=== PATIENT | male | born 2000 | race Caucasian/White ===

== ENCOUNTER 2024-06-22 02:44 | Emergency (ER) | payer OTHER, SELFPAY ==
[2024-06-22 02:50] VITALS: BP 156/91; PULSE 107; RESP 18; TEMP 36.6; O2SAT 98; BMI 31.2
--- NOTE | 2024-06-22 02:57 | ED.NURSE ---
Visual Acuity - Right eye 20/30, Left eye 20/50
--- NOTE | 2024-06-22 03:13 | ED.EYEPROB ---
HPI - Eye Problem General Date Seen: 06/22/24 Chief complaint: Eye Problems Stated complaint: dog scratched L eye Time Seen by Provider: 06/22/24 02:45 Source: patient Mode of arrival: ambulatory Limitations: no limitations History of Present Illness HPI Narrative: Patient is a 23-year-old gentleman who presents here with scratch to his left eye, this occurred when his own dog, was playing with him and scratched his left eye, he went to bed but then woke up with left eye tearing, and some blurry vision, and proceeded to come in here he did take 200 mg of ibuprofen before coming in here. Last tetanus was updated in 2013, he does not wear contacts or glasses. Left eye is 20 /50 right eye is 20/20 Injury occurred at 9:30 a.m. last night MD chief complaint: eye pain and eye injury Onset (ago): hour(s) Location: left eye Eye Symptoms: burning, foreign body sensation and blurry vision Place: home Mechanism: direct trauma Severity: moderate Treatments Prior to Arrival: NSAID Related Data Patient tetanus UTD: No Allergies Allergy/AdvReac Type Severity Reaction Status Date / Time No Known Drug Allergies Allergy Verified 06/22/24 02:54 Review of Systems Status of ROS: Reports: 10 or more systems reviewed and unremarkable except as noted in History and below Exam Narrative: Exam Narrative: On examination hears tearing out of his left eye, his lid is grossly normal, pupils equal round reactive to light he is photophobic, extraocular muscles are normal with no nystagmus. Tetracaine is used in his left eye, the good affect this helped a lot of his blepharospasm. Was able to put some fluorescein in there and rate in the center part of his eye there was an obvious scratch corneal abrasion, with uptake of the fluoroscein . Upper lid is everted and normal no evidence of foreign body lower lid is checked also. Slit lamp was used. Erythromycin ophthalmic ointment is used in his left eye, with 1 ribbon, he is given ibuprofen also. Const: Vital Signs, click to edit/add: Vital Signs - 24 hr 06/22/24 02:50 Temperature 97.8 F Pulse Rate [Right Pulse Oximeter] 107 H Respiratory Rate 18 Blood Pressure [Ri ght Upper Arm] 156/91 H Pulse Oximetry 98 Oxygen Delivery Me thod Room Air Documenting provider has reviewed patient's vital signs: yes Course Vital Signs Vital signs: Initial Vital Signs Temperature 97.8 F 06/22/24 02:50 Temperature Source Temporal Artery Scan 06/22/24 02:50 Pulse Rate 107 H 06/22/24 02:50 Pulse Rhythm Regular 06/22/24 02:50 Pulse Strength 3+ Normal 06/22/24 02:50 Respiratory Rate 18 06/22/24 02:50 Blood Pressure 156/91 H 06/22/24 02:50 Blood Pressure Mean 112 H 06/22/24 02:50 Blood Pressure Position Sitting 06/22/24 02:50 Pulse Oximetry 98 06/22/24 02:50 Oxygen Delivery Method Room Air 06/22/24 02:50 Vital Signs Temperature 97.8 F 06/22/24 02:50 Pulse Rate 107 H 06/22/24 02:50 Respiratory Rate 18 06/22/24 02:50 Blood Pressure 156/91 H 06/22/24 02:50 Pulse Oximetry 98 06/22/24 02:50 Oxygen Delivery Method Room Air 06/22/24 02:50 Temperature 97.8 F 06/22/24 02:50 Pulse Rate 107 H 06/22/24 02:50 Respiratory Rate 18 06/22/24 02:50 Blood Pressure 156/91 H 06/22/24 02:50 Pulse Oximetry 98 06/22/24 02:50 Oxygen Delivery Method Room Air 06/22/24 02:50 MDM - Eye Problem MDM Narrative Medical decision making narrative: Consideration was made for both foreign body, corneal abrasion, glaucoma, hyphema, open globe, among other things. Differential Diagnosis Differential diagnosis: Likely corneal abrasion, conjunctivitis, acute iritis, hyphema, periorbital cellulitis, subconjunctival hemorrhage, glaucoma, corneal ulcer and ruptured globe Medical Records Attestation: I reviewed the patient's medical records. Discharge Plan Discharge Clinical Impression: Corneal abrasion Patient Disposition: Home, Self-Care Condition: Improved Instructions: Corneal Abrasion (DC), Photophobia (ED) Additional Instructions: Home rest ibuprofen 6-800 mg 3 times a day, erythromycin ointment applied 3 times a day to the area for the next 5 days, you should be significantly better tomorrow, if your not then I recommend he be seen at the [facility] here in town. As they have some better tools then I have here. The scratches usually heal up very fast, in the next 24-48 hours infection is the big thing and that is why were using the erythromycin ointment. Be careful when you drive home, as you will have 1 eye blurry vision, and also your perception will be off. Activity Level: Light activity Discharge Diet: Regular Stand Alone Forms: [employer] Info Instructions
[2024-06-22] MEDS: TETANUS/DIPHTH/PERTUSSIS 0.5 ML SYRINGE IM (03:16)
[2024-06-22] MEDS: IBUPROFEN 200 MG TABLET 600 MG PO (03:19)
== END 2024-06-22 03:32 | disposition home or self-care (01) ==
LOC: ED 03:31
PROVIDERS: Emergency Provider Family Medicine
DX: S05.02XA Injury of conjunctiva and corneal abrasion without foreign body, left eye, initial encounter (principal); W54.1XXA Struck by dog, initial encounter; Z23 Encounter for immunization
CPT/HCPCS: 90471; 90715; 99283; A9270

== ENCOUNTER 2025-05-15 23:51 | Emergency (ER) | payer OTHER, SELFPAY ==
--- OUTSIDE RECORDS SUMMARY | 2025-05-15 23:53 | XMS_ITS | Clinical Summary ---
Author Organization [facility] Address [address] [place] [id number] Care Team Providers Care Fish Net Maker Name Role Phone Breanne Eduardo Primary Care Provider Allergies No known active allergies Medications HYDROcodone-ac etaminophen (NORCO) 5-325 mg per tabletIndicati ons:Pain, dental Take 1 Tablet by mouth every 4 hours if needed for Pain. Max acetaminophen dose: 4000 mg in 24 hrs. 7 Tablet 2 Active amoxicillin-cl avulanate 875-125 mg tablet (AUGMENTIN)Ind ications:Pain, dental Take 1 Tablet by mouth in the morning and 1 Tablet in the evening. Take with meals. 14 Tablet 2 Active Active Problems Problem Noted Date Diagnosed Date Back pain 10/10/2011 Overview (10/10/2011): Referred to [facility] Saw Dr Campbell 10/08/11, scoliosis likely due to posturing. normal hips/pelvis. Plan for MRI to rule out any further pathology. Acute upper respiratory infections of unspecifie d site 04/13/2004 Unspecified otitis media 04/13/2004 Resolved Problems Problem Noted Date Diagnosed Date Resolved Date RASH 10/05/2003 10/19/2003 Immunizations Immunization Administration Dates Next Due DTaP 03/03/2006, 3,02/20/2001,12/19,2000 HIB-HepB (Comvax) 08/28/2001,2000,10/17/19 HPV 9 (Gardasil 9) 09/16/2017 Hepatitis A (Peds) 09/16/2017,05/17/2015 Inactivated Polio Vaccine 03/03/2006,01/2002,2000,10/16 Influenza, IIV4 05/17/2015 MENINGOCOCCAL VACCINE 2 VIAL [id number] (MENVEO) 09/16/2017,02/15/2013 MMR 03/03/2006,09/24/2002 Pneumococcal conj 7-Valent (Prevnar 7) 0 09/24/2002,02/20/2001,2000,10/16 Tdap 02/15/2013 Varicella Vaccine 02/25/2013,08/28/2001 Family History Medical History Relation Name Comments Good Health Father Heart Disease Maternal Grandfather Good Health Mother Relation Name Status Comments Father Maternal Grandfather Mother Social History Tobacco Use Types Packs/Day Years Used Date Smoking Tobacco: Former Cigarettes 0.3 0.1 Smokeless Tobacco: Never Tobacco Cessation:Counseling Given: Yes Comments:Father smokes outside Alcohol Use Standard Drinks/Week Comments No 0 (1 standard drink = 0.6 oz pure alcohol) Alcoholic Drinks/day: 0 Former drinker PHQ-2 Answer Date Recorded PHQ-2 Score 4 08/23/2018 Social Connections Answer Date Recorded Frequency of Communication with Friends and Fami ly Not on file 09/11/2021 Sex and Gender Information Value Date Recorded Sex Assigned at Not on file 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 Gender Identity Not on file Sexual Orientation Not on file Obstetrics History Last Filed Vital Signs Vital Sign Reading Time Taken Comments Blood Pressure 161/94 01/21/2022 11:14 AM CDT Pulse 56 01/21/2022 11:14 AM CDT Temperature 36.7 C (98.1 F) 01/21/2022 11:14 AM CDT Respiratory Rate 16 01/21/2022 11:14 AM CDT Oxygen Saturation 100% 01/21/2022 11:14 AM CDT Inhaled Oxygen Concentration - - Weight 109.3 kg (241 lb) 09/11/2021 2:59 PM CDT Height 183.5 cm (6' 0.24) 07/09/2018 2:27 PM CS T Body Mass Index - - Plan of Treatment Upcoming Encounters Date Type Department Care Team (Late st Contact Info) Description 05/20/2025 9:40 AM PERFORATOR OPERATOR Office Visit [facility] [place] [address] [place], [place] [phone] [place] [id number] [place], [place] [phone] Health Maintenance Due Date Last Done Comments HIV for age 15-65 2015 HPV series for age 9-45 (2 - Male 3-dose series) 10/14/2017 09/16/2017 BMI (ht and wt on same day) for age 18+ 2018 Hepatitis C screening for age 18-79 2018 Depression screening for age 12+ 11/13/2018 11/13/2017, 09/16/2017, 02/26/2017 Tetanus booster 02/15/2023 02/15/2013 Influenza Vaccine (#1) 2025 05/17/2015 RSV vaccine for adults or (1 - 1-dose 75+ series) 2075 Hepatitis B series for 19+ Completed 08/28, 2000, 2000 Pneumococcal series for age 6-49 Aged Out 09/24/2002, 02/20/2001, 2000, Additional history exists No longer eligible based on patient's age to complete this topic Care Teams Fish Net Maker Relationship Specialty Start Date End Date Breanne Eduardo [place] [address] [place] [address] PCP - General Physician Bill Of Lading Clerk 09/09/17
[2025-05-15 23:57] VITALS: BP 153/89; PULSE 84; RESP 19; TEMP 36.5; O2SAT 99; BMI 29.5
--- NOTE | 2025-05-16 00:33 | CRLHL7_ITS ---
For Patients: As a result of the Century Cures Act, medical imaging exams and procedure reports are released immediately into your electronic medical record. You may view this report before your referring provider. If you have questions, please contact your health care provider. INDICATION: Right upper quadrant pain. TECHNIQUE: CT abdomen and pelvis acquired with 112 cc Isovue 370 IV contrast. COMPARISON: None. FINDINGS: Lower chest: Unremarkable. Liver: Unremarkable. Normal in size and attenuation. No suspicious masses. Gallbladder and bile ducts: Cholelithiasis. No inflammation. No biliary dilatation. Pancreas: Unremarkable. No mass or inflammation. Spleen: Unremarkable. Normal in size. No masses. Adrenal glands: Unremarkable. No nodules. Kidneys: Unremarkable. No suspicious masses, stones, or hydronephrosis. GI tract: Unremarkable. Normal in caliber. No sign of mass or inflammation. Normal appendix. Vasculature: Abdominal aorta is normal in caliber. Mesenteric arteries are patent. Lymph nodes: No lymphadenopathy. Peritoneum/Abdominal Wall: Unremarkable. No sign of mass or infiltration. No free air or significant free fluid. Pelvis: Unremarkable. Bones: Unremarkable for age. IMPRESSION: No acute intra-abdominal/pelvic abnormality, including CT evidence of acute cholecystitis or biliary obstruction. Please note that all CT scans at this facility use dose modulation, iterative reconstruction, and/or weight-based dosing when appropriate to reduce radiation dose to as low as reasonably achievable. Dictated by Samy Jones MD @ 05/16/2025 1:00:45 AM (Electronically Signed)
--- NOTE | 2025-05-16 00:39 | ED_ITS ---
HPI - General Adult General Chief complaint: Abdominal Pain Stated complaint: right side abdominal pain Time Seen by Provider: 05/16/25 00:20 Source: patient Mode of arrival: ambulatory History of Present Illness HPI narrative: 24-year-old male presents to the emergency department with 90 minutes of pain in the right upper quadrant in the abdomen radiating around to the back. Constant, dull and achy. Accompanied by vomiting. No fever. No trauma or injury. No prior history of similar symptoms. No family history of gallbladder disease. No prior pancreatitis. No fever. Did not try any interventions prior to coming to ED. no prior abdominal surgeries. Not anticoagulated. Drinks 1 beer about twice weekly, no heavy alcohol use. Past medical history benign per his report. No major long-term health problems. No allergies. ROS is notable for the GI symptoms only, otherwise denies times 12 systems. No family history of bleeding or blood clotting disorders. No family history of anesthesia complications. Related Data Home Medications ?Medication ?Instructions ?Recorded ?Confirmed No Known Home Medications 05/15/2504/24 Allergies Allergy/AdvReac Type Severity Reaction Status Date / Time No Known Drug Allergies Allergy Verified 05/15/25 23:57 [facility] Social History Smoking Status: Never smoker Do you use any of these nicotine containing products: Vaping Products How often do you have a drink containing alcohol: monthly or less AUDIT-C Alcohol total score: 1 Non-prescribed substance use: marijuana (any form) Exam Const: Vital Signs, click to edit/add: Vital Signs - 24 hr 05/15/25 23:57 Temperature 97.7 F Pulse Rate [Right Pulse Oximeter] 84 Respiratory Rate 19 Blood Pressure [Ri ght Upper Arm] 153/89 H Pulse Oximetry 99 Oxygen Delivery Me thod Room Air Documenting provider has reviewed patient's vital signs: yes Common normals: no apparent distress General appearance: cooperative and well kempt Other: Mildly uncomfortable, declines pain medicine for now HENMT: Common normals: normocephalic, moist oral mucous membranes and oropharynx normal Head and scalp: normocephalic Mouth: oral and palatal mucosa normal Eye: Common normals: conjunctivae normal General eye: normal appearance of both eyes Conjunctiva: conjunctiva(e) normal Neck & C-Spine: Common normals: full ROM and no lymphadenopathy General: normal visual inspection Resp: Common normals: normal respiratory effort, no use of accessory muscles and clear to auscultation bilaterally Effort & inspection: able to speak in complete sentences Auscultation: clear to auscultation bilaterally Cardio: Common normals: regular rate, regular rhythm, S1 normal heart sound, S2 normal heart sound and no murmurs Rate: regular rate Rhythm: regular rhythm Heart sounds: S1 normal and S2 normal GI: Common normals: Normal to inspection, nondistended, normoactive bowel sounds present, soft to palpation, no hepatosplenomegaly and no masses Palpation: soft and no hepatosplenomegaly Other: Exquisitely tender to right upper quadrant. Positive Mejía sign. Positive mild guarding : Common normals: no CVA tenderness Bladder/kidney exam: no CVA tenderness Back & Pelvis: Common normals: no CVA tenderness Extremity: Common normals: normal to inspection and normal capillary refill Psych: Appearance: well kempt Attitude: engaged Mood and affect: euthymic mood Skin: Common normals: no rashes or lesions noted General skin exam: no rashes or lesions noted Course Course ED Course: 24-year-old male with right upper quadrant pain highly suspicious for gallbladder disease. Differential diagnosis including cholecystitis, choledocholithiasis, biliary dyskinesia, gastritis, pancreatitis, colitis, referred pain, musculoskeletal pain, kidney stone, amongst others. Will place peripheral IV. I do not have ultrasound readily available at this hour, will start with CT. Patient counseled that I may still need to call in ultrasound but will start with CT. Typical intra-abdominal labs. He declines pain medicine for now, will give Zofran and IV fluid. Await findings. Consider surgical consult of warranted Reevaluation(s) Time of Reevaluation #1: 01:26 Reevaluation #1: Counseled patient on findings, labs are reassuring. CT is reassuring. I reminded him that this may not show cholecystitis well. I have not given him any pain medication, just anti nausea medicine and his pain has gone from an 8 to a 4. We discussed ultrasound and I do recommended but he is thinking that he would rather just be discharged and this is certainly reasonable. He does not have any signs of biliary obstruction, pancreatitis or infection. Most likely this is biliary dyskinesia. It would be reasonable to do a trial of conservative management and see how things go. He is very reliable to come back if his symptoms worsen. We discussed an outpatient ultrasound if he continues to have similar spells. I let him know that it is okay to try Tylenol and ibuprofen if he has similar symptoms as long as there is no fever, persistent vomiting, bloody stools or trauma. If he has persistent pain, especially if the fever he needs to be evaluated. If he has bothersome persistent symptoms, an elective cholecystectomy can be considered as well. He would need to have outpatient workup for this. He was agreeable to this plan I would like to be discharged home. This is very reasonable. Written instructions provided. Vital Signs Vital signs: Initial Vital Signs Temperature 97.7 F 05/15/25 23:57 Temperature Source Temporal Artery Scan 05/15/25 23:57 Pulse Rate 84 05/15/25 23:57 Respiratory Rate 19 05/15/25 23:57 Blood Pressure 153/89 H 05/15/25 23:57 Blood Pressure Mean 110 H 05/15/25 23:57 Blood Pressure Position Sitting 05/15/25 23:57 Pulse Oximetry 99 05/15/25 23:57 Oxygen Delivery Method Room Air 05/15/25 23:57 Vital Signs Temperature 97.7 F 05/15/25 23:57 Pulse Rate 84 05/15/25 23:57 Respiratory Rate 19 05/15/25 23:57 Blood Pressure 153/89 H 05/15/25 23:57 Pulse Oximetry 99 05/15/25 23:57 Oxygen Delivery Method Room Air 05/15/25 23:57 Temperature 97.7 F 05/15/25 23:57 Pulse Rate 84 05/15/25 23:57 Respiratory Rate 19 05/15/25 23:57 Blood Pressure 153/89 H 05/15/25 23:57 Pulse Oximetry 99 05/15/25 23:57 Oxygen Delivery Method Room Air 05/15/25 23:57 Medications Administered Medications: Discontinued Medications Generic Name Dose Route Start Last Admin Trade Name Freq PRN Reason Stop Dose Admin Lactated Ringer's 1,000 mls @ 1,000 mls/hr 05/16/25 00:33 05/16/25 00:41 Lactated Ringers 1000 Ml IV 05/16/25 01:32 1,000 mls/hr .Q1H ONE Administration Ondansetron HCl 4 mg 05/16/25 00:33 05/16/25 00:41 Ondansetron 2 Mg/Ml Inj IVP 05/16/25 00:34 4 mg ONCE ONE Administration Medical Decision Making Lab Data Lab results reviewed: Yes I reviewed the patient's lab results Lab results narrative: Labs reassuring. No significant leukocytosis. Normal electrolytes, normal liver function, negative CRP, normal lipase. Labs: Lab Results 05/16/25 Range/Units 00:44 WBC 10.73 (4.50-11.00) K/uL RBC 5.25 (4.30-5.90) m/uL Hgb 15.3 (13.5-17.5) gm/dL Hct 44.5 (37.0-53.0) % MCV 85 (80-100) fL MCH 29 (26-34) pg MCHC 34 (32-36) gm/dL RDW Coeff of Layne 12.2 (11.5-15.5) % Plt Count 204 (140-440) K/uL Neut % (Auto) 87.6 H (42.0-72.0) % Lymph % (Auto) 7.8 L (20-44) % [place] % (Auto) 2.7 (0.0-11.0) % Eos % (Auto) 1.5 (0.0-7.0) % Baso % (Auto) 0.2 (0.0-3.0) % Neut # (Auto) 9.40 H (1.7-7.0) K/uL Lymph # (Auto) 0.80 L (0.90-2.90) K/uL [place] # (Auto) 0.30 (0.00-0.90) K/UL Eos # (Auto) 0.16 (0.00-0.50) K/uL Baso # (Auto) 0.02 (0.00-0.30) K/uL Abs Immat Gran (auto) 0.02 (0.00-0.30) K/uL Imm/Tot Granulo (auto) 0.2 % Sodium 139 (135-149) mmol/L Potassium 3.9 (3.6-5.1) mmol/L Chloride 101 (96-114) mmol/L Carbon Dioxide 27 (20-32) mmol/L Anion Gap 11 (7-15) mEq/L BUN 13 (5-24) mg/dL Creatinine 0.9 (0.5-1.5) mg/dL Estimated Creat Clear 147.15 Estimated GFR 122 ml/min Glucose 139 H (60-115) mg/dL Lactate 0.8 (0.5-1.9) mmol/L Calcium 9.3 (8.4-10.6) mg/dL Total Bilirubin 1.3 (0.1-1.5) mg/dL AST 28 (12-35) U/L ALT 30 (4-50) U/L Alkaline Phosphatase 45 (40-150) U/L C-Reactive Protein < 0.5 L (0.5-1.0) mg/dL Total Protein 8.2 (6.0-8.3) g/dL Albumin 4.9 (3.3-5.0) g/dL Lipase 37 (23-300) U/L Imaging Data CT scan - abdomen: Attestation: I have reviewed the pertinent imaging results. My impression: No obvious cholecystitis. No significant constipation, free air or other abnormalities in the area of the abdomen that would explain symptoms Radiologist's impression: IMPRESSION: No acute intra-abdominal/pelvic abnormality, including CT evidence of acute cholecystitis or biliary obstruction. Please note that all CT scans at this facility use dose modulation, iterative reconstruction, and/or weight-based dosing when appropriate to reduce radiation dose to as low as reasonably achievable. Dictated by Samy Jones MD @ 05/16/2025 1:00:45 AM Discharge Plan Discharge Clinical Impression: Biliary dyskinesia Patient Disposition: Home, Self-Care Condition: Improved Instructions: Biliary Colic (ED) Additional Instructions: As we discussed, your labs look great today as does the CT scan. Remember that a CT scan is not the best way to look for infected gallbladders or gallstones. But thankfully with normal labs, there are no signs of biliary or pancreatic obstruction, infection is also unlikely. This means that the most likely reason is biliary dyskinesia, also known as a gallbladder spasm. These are very common. You elected not to wait for ultrasound. I agree with you that this will take several hours to facilitate and is unlikely to change our management especially since her symptoms have improved so much even though we have not given you pain medication. Unfortunately, people that get these spells are likely to get them again. You should come to any ER if your symptoms last for more than about 6 hours. It is absolutely okay for you to use a 1000 mg of Tylenol and or 600 mg of ibuprofen to help with the pain. Remember that it is more likely to be flared by fatty foods but it does not tend to be very reproducible or predictable. Meaning that you may be able to eat those things sometimes and not have symptoms. If you have persistent pain especially company by high fever, persistent vomiting, bloody stools, you should return to the emergency room. If you continue to have these kinds of spells, on ultrasound and possibly a HIDA scan can be ordered outpatient. You are cleared to return to all work or school duties. Activity Level: No Restrictions Discharge Diet: Regular Prescriptions: No Action No Known Home Medications Follow Up/Referrals: Provider,Not a Local [Primary Care Provider, Family Practice] Stand Alone Forms: [facility] Info Instructions
[2025-05-16] MEDS: LACTATED RINGERS 1000 ML 1,000 ML IV (00:41)
[2025-05-16] MEDS: ONDANSETRON 2 MG/ML inj 4 MG IVP (00:41)
[2025-05-16 00:47] LABS: Lactate* 0.8 mmol/L (0.5-1.9)
[2025-05-16 00:50] LABS: Hematocrit* 44.5 % (37.0-53.0); Hemoglobin* 15.3 gm/dL (13.5-17.5); Immature Granulocytes Abs Auto 0.02 K/uL (0.00-0.30); Immature Granulocytes Pct Auto 0.2 %; Lymphocytes Absolute Auto 0.80 K/uL (0.90-2.90); Mean Corpuscular HGB Conc 34 gm/dL (32-36); Mean Corpuscular Hemoglobin 29 pg (26-34); Mean Corpuscular Volume 85 fL (80-100); RDW Coefficient of Variation % 12.2 % (11.5-15.5); Red Blood Count* 5.25 m/uL (4.30-5.90); Slide Review Reflex No; White Blood Count* 10.73 K/uL (4.50-11.00)
[2025-05-16 01:08] LABS: Albumin* 4.9 g/dL (3.3-5.0); Chloride* 101 mmol/L (96-114); Potassium* 3.9 mmol/L (3.6-5.1); Sodium* 139 mmol/L (135-149)
[2025-05-16 01:09] LABS: Blood Urea Nitrogen* 13 mg/dL (5-24); Creatinine* 0.9 mg/dL (0.5-1.5); Est. Creatinine Clearance* 147.15; Estimated Glomerular Filt Rate 122 ml/min
--- OUTSIDE RECORDS SUMMARY | 2025-05-16 01:09 | XMS_ITS | Clinical Summary ---
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
[2025-05-16 01:10] LABS: Alanine Aminotransferase* 30 U/L (4-50); Alkaline Phosphatase* 45 U/L (40-150); Anion Gap 11 mEq/L (7-15); Aspartate Amino Transferase* 28 U/L (12-35); Bilirubin Total* 1.3 mg/dL (0.1-1.5); Carbon Dioxide* 27 mmol/L (20-32); Total Protein* 8.2 g/dL (6.0-8.3)
[2025-05-16 01:11] LABS: Calcium* 9.3 mg/dL (8.4-10.6); Glucose* 139 mg/dL (60-115)
== END 2025-05-16 02:59 | disposition home or self-care (01) ==
PROVIDERS: Emergency Provider Family Medicine
DX: K82.8 Other specified diseases of gallbladder (principal)
CPT/HCPCS: 36415; 74177; 80053; 81003; 83605; 83690; 85025; 86140; 96361; 96374; 99284; 99285; J2405; J7120; Q9967